=== PATIENT | female | born 1935 | race Caucasian/White ===

== ENCOUNTER 2017-01-12 19:23 | Emergency (ER) | payer OTHER ==
[~2017-01-12] VITALS: Ht 154.9 cm; Wt 48.0 kg
[~2017-01-12 19:23] MED LIST: AMLO5TAB96 PO; ATEN1TAB74 PO; CHERSOL PO; HYDR200T3 PO; LEVO500T3 PO; LISI10TA PO; PRAV20 PO
[2017-01-12 19:50] VITALS: BP 128/60; PULSE 81; RESP 20; TEMP 97.7; O2SAT 93
[2017-01-12 20:02] VITALS: BP 154/64; PULSE 90; RESP 18; O2SAT 92
[2017-01-12] MEDS ORDERED: AMLO5TAB2 PO (20:10)
[2017-01-12] MEDS ORDERED: ATEN50TA PO (20:10)
[2017-01-12] MEDS ORDERED: LISI20TA PO (20:10)
[2017-01-12] MEDS ORDERED: TEMA7.5C PO (20:10)
--- NOTE | 2017-01-12 20:23 | PD ---
HPI Chief Complaint: Respiratory Symptoms Time Seen by Provider: 20:14 Travel History International Travel<30 days: No Contact w/Intl Traveler<30days: No Traveled to known affect area: No History of Present Illness HPI This 81-year-old female is complaining of cough and shortness of breath. She's been having these symptoms for several days. She went to her primary care doctor and was given prescription for Z-Jason. She is almost finished the Z-Jason and is still having a cough. It is nonproductive. She stopped smoking about a month ago. She says she used to smoke 3 or 4 cigarettes a week. She has had some trouble sleeping but is getting some relief with Restoril. Her suddenly of a cardiac arrest about a month ago and then she's been extremely distraught since then. She wonders if her symptoms might be related to stress and anxiety. She has no history of heart disease. She has not been having chest pain. PFSH Past Medical History Hypertension: Yes Musculoskeletal: Yes (OSTEOPOROSIS) Immunizations Current: Yes ?: Not Menopausal: No Past Surgical History Hysterectomy: Yes Social History Alcohol Use: No Tobacco Use: Yes (2 CIG A DAY) Substance Use: No Allergies-Medications (Allergen,Severity, Reaction): Coded Allergies: No Known Allergies (Verified , 06/25/15) Reported Meds & Prescriptions Reported Meds & Active Scripts Active Reported Temazepam 7.5 Mg Cap 7.5 Mg PO HS PRN Lisinopril-Hctz 20-12.5 Mg Tab 1 Tab PO DAILY Atenolol 50 Mg Tab 50 Mg PO DAILY Amlodipine (Amlodipine Besylate) 5 Mg Tab 5 Mg PO DAILY Review of Systems General / Constitutional: No: Fever, Chills Eyes: No: Diploplia, Blurred Vision HENT: No: Headaches, Vertigo Cardiovascular: No: Chest Pain or Discomfort Respiratory: Positive: Cough, Shortness of Breath Gastrointestinal: No: Nausea, Vomiting Genitourinary: No: Urgency, Frequency Musculoskeletal: No: Myalgias, Arthralgias Skin: No Rash Neurologic: Positive: Weakness Physical Exam Narrative GENERAL: Well-developed female SKIN: Focused skin assessment warm/dry. HEAD: Atraumatic. Normocephalic. EYES: Pupils equal and round. No scleral icterus. No injection or drainage. ENT: No nasal bleeding or discharge. Mucous membranes pink and moist. NECK: Trachea midline. No JVD. CARDIOVASCULAR: Regular rate and rhythm. No murmur appreciated. RESPIRATORY: No accessory muscle use. Heart occasional rhonchi Breath sounds equal bilaterally. GASTROINTESTINAL: Abdomen soft, non-tender, nondistended. Hepatic and splenic margins not palpable. MUSCULOSKELETAL: No obvious deformities. No clubbing. No cyanosis. No edema. NEUROLOGICAL: Awake and alert. No obvious cranial nerve deficits. Motor grossly within normal limits. Normal speech. PSYCHIATRIC: Appropriate mood and affect; insight and judgment normal. Data Data Last Documented VS Vital Signs Date Time Temp Pulse Resp B/P (MAP) Pulse Ox O2 Delivery O2 Flow Rate FiO2 01/12/17 20:50 92 16 143/77 (99) 98 Nasal Cannula 2.00 01/12/17 19:50 97.7 Orders Orders Electrocardiogram (01/12/17 20:21) Complete Blood Count With Diff (01/12/17 20:21) Comprehensive Metabolic Panel (01/12/17 20:21) Troponin I (01/12/17 20:21) B-Type Natriuretic Peptide (01/12/17 20:21) Magnesium (Mg) (01/12/17 20:21) Thyroid Stimulating Hormone (01/12/17 20:21) Chest, Single Ap (01/12/17 20:21) Albuterol-Ipratropium Neb (Duoneb Neb) (01/12/17 20:30) Influenzae A/B Antigen (01/12/17 20:23) Labs Laboratory Tests Test 01/12/17 20:30 White Blood Count 7.1 TH/MM3 Red Blood Count 4.80 MIL/MM3 Hemoglobin 14.1 GM/DL Hematocrit 42.8 % Mean Corpuscular Volume 89.2 FL Mean Corpuscular Hemoglobin 29.4 PG Mean Corpuscular Hemoglobin Concent 33.0 % Red Cell Distribution Width 12.3 % Platelet Count 247 TH/MM3 Mean Platelet Volume 7.2 FL Neutrophils (%) (Auto) 67.9 % Lymphocytes (%) (Auto) 20.3 % Monocytes (%) (Auto) 9.3 % Eosinophils (%) (Auto) 1.6 % Basophils (%) (Auto) 0.9 % Neutrophils # (Auto) 4.8 TH/MM3 Lymphocytes # (Auto) 1.4 TH/MM3 Monocytes # (Auto) 0.7 TH/MM3 Eosinophils # (Auto) 0.1 TH/MM3 Basophils # (Auto) 0.1 TH/MM3 CBC Comment DIFF FINAL Differential Comment Blood Urea Nitrogen 31 MG/DL Creatinine 1.40 MG/DL Random Glucose 109 MG/DL Total Protein 8.0 GM/DL Albumin 4.1 GM/DL Calcium Level 9.8 MG/DL Magnesium Level 2.0 MG/DL Alkaline Phosphatase 55 U/L Aspartate Amino Transf (AST/SGOT) 31 U/L Alanine Aminotransferase (ALT/SGPT) 27 U/L Total Bilirubin 0.4 MG/DL Sodium Level 136 MEQ/L Potassium Level 4.1 MEQ/L Chloride Level 100 MEQ/L Carbon Dioxide Level 26.8 MEQ/L Anion Gap 9 MEQ/L Estimat Glomerular Filtration Rate 36 ML/MIN Troponin I LESS THAN 0.02 NG/ML B-Type Natriuretic Peptide 33 PG/ML Thyroid Stimulating Hormone 3rd Gen 2.200 uIU/ML MDM Medical Decision Making Medical Screen Exam Complete: Yes Emergency Medical Condition: Yes Medical Record Reviewed: Yes Differential Diagnosis Differential includes COPD, pneumonia, CHF Narrative Course Chest x-ray is negative. White count is normal. I believe the patient has a viral upper respiratory infection. She did not derive much benefit from a nebulizer treatment and I don't think outpatient aerosols are warranted. I have recommended fluids. She is stable for discharge Diagnosis Primary Impression: Upper respiratory infection Qualified Codes: J06.9 - Acute upper respiratory infection, unspecified; B97.89 - Other viral agents as the cause of diseases classified elsewhere Disposition: 01 DISCHARGE HOME Condition: Stable Patrick Trimble MD Jan 12, 2017 20:23
[2017-01-12] MEDS ORDERED: RESP: ALBUTEROL 2.5 MG/IPRATROPIUM 0.5 MG NEB (SCH) NEB ONE (20:30)
[2017-01-12 20:42] LABS: AUTOMATED NEUTROPHIL # 4.8 TH/MM3 (1.8-7.7); BASOPHIL # 0.1 TH/MM3 (0-0.2); BASOPHIL % 0.9 % (0.0-2.0); EOSINOPHIL # 0.1 TH/MM3 (0-0.4); EOSINOPHIL % 1.6 % (0.0-4.0); HEMATOCRIT 42.8 % (35.0-46.0); HEMO FLAGS DIFF FINAL; LYMPH % 20.3 % (9.0-44.0); LYMPHOCYTE # 1.4 TH/MM3 (1.0-4.8); MEAN CELL VOLUME 89.2 FL (80.0-100.0); MEAN CORPUSCULAR HEMOGLOBIN 29.4 PG (27.0-34.0); MONO % 9.3 % (0.0-8.0); NEUT % 67.9 % (16.0-70.0); PLATELET COUNT 247 TH/MM3 (150-450); RED CELL DISTRIBUTION WIDTH 12.3 % (11.6-17.2); WHITE BLOOD COUNT 7.1 TH/MM3 (4.0-11.0)
--- NOTE | 2017-01-12 20:43 | RADRPT ---
EXAM DATE/TIME: 01/12/2017 20:24 [facility] COMPARISON: CHEST SINGLE AP, June 25, 2015, 10:31. INDICATIONS : Shortness of breath. MEDICAL HISTORY : None. SURGICAL HISTORY : None. ENCOUNTER: Initial ACUITY: 4 - 6 days PAIN SCORE: 0/10 LOCATION: Bilateral chest FINDINGS: A single view of the chest demonstrates the lungs to be symmetrically aerated without evidence of mas s, infiltrate or effusion. The cardiomediastinal contours are unremarkable. Osseous structures are intact. Mild atherosclerotic changes are present in the aorta. CONCLUSION: No acute disease. Shade Canales MD on January 12, 2017 at 20:42 Board Certified Radiologist. This report was verified electronically.
[2017-01-12 20:50] VITALS: BP 143/77; PULSE 92; RESP 16; O2SAT 98
[2017-01-12 21:03] LABS: CHLORIDE 100 MEQ/L (98-107); POTASSIUM 4.1 MEQ/L (3.5-5.1); SODIUM (NA) 136 MEQ/L (136-145)
[2017-01-12 21:07] LABS: ANION GAP 9 MEQ/L (5-15); BICARBONATE 26.8 MEQ/L (21.0-32.0); BLOOD UREA NITROGEN 31 MG/DL (7-18)
[2017-01-12 21:10] LABS: ALT (GPT) 27 U/L (10-53); AST (GOT) 31 U/L (15-37); GLOMERULAR FILTRATION RATE 36 ML/MIN (>89)
[2017-01-12 21:12] LABS: TOTAL BILIRUBIN ADULT 0.4 MG/DL (0.2-1.0)
[2017-01-12 21:13] LABS: ALKALINE PHOSPHATASE 55 U/L (45-117)
[2017-01-12 21:58] VITALS: BP 147/74
--- NOTE | 2017-01-13 20:08 | EKG ---
Date Performed: 01/12/2017 Time Performed: 20:39:59 PTAGE: 81 years EKG: Sinus rhythm NORMAL ECG NO PREVIOUS TRACING DOCTOR: Job Mora Interpretating Date/Time 01/13/2017 20:05:04
== END 2017-01-12 22:00 | disposition home or self-care (01) ==
LOC: PHED 19:23
DX: J06.9 Acute upper respiratory infection, unspecified (principal); B97.89 Other viral agents as the cause of diseases classified elsewhere; I10 Essential (primary) hypertension; M81.0 Age-related osteoporosis without current pathological fracture; F17.210 Nicotine dependence, cigarettes, uncomplicated; Z79.899 Other long term (current) drug therapy
CPT/HCPCS: 71010; 80053; 83735; 83880; 84443; 84484; 85025; 87804; 93005; 94664